=== PATIENT | female | born 1945 | race Caucasian/White ===

== ENCOUNTER 2022-07-18 07:20 | Day surgery (SDC) | payer OTHER ==
[~2022-07-18 07:20] MED LIST: CHILDREN'S ASPI81 MG PO; COZAAR50 MG PO; CRESTOR20 MG PO; STRESS B WITH1 EACH PO; TOPROL XL50 M1 PO
== END 2022-07-18 18:35 | disposition home or self-care (01) ==
LOC: CIR.AMB 07:20
PROVIDERS: ATTEND Obstetrics & Gynecology
DX: N95.0 Postmenopausal bleeding (principal); Z88.6 Allergy status to analgesic agent; Z20.822 Contact with and (suspected) exposure to COVID-19; I10 Essential (primary) hypertension